=== PATIENT | female | born 1965 | race American Indian/Alaskan Native ===

== ENCOUNTER 2017-03-14 09:58 | Emergency (ER) | payer MEDICAID ==
[2017-03-14 10:26] VITALS: BP 118/78
--- NOTE | 2017-03-14 10:27 | Emergency Department Report ---
Stated Complaint: CHEST PAIN Time Seen by Provider: 03/14/17 10:23 - HPI History of Present Illness: PT c/o L sided chest pain x 1 week PT also c/o headaches, hx of cva - ROS Review of Systems: + subjective fever + cough + headache x 2 weeks - Exam Physical Exam: PT is alert and appropriate no focal weakness noted gcs 15 steady gait MSE screening note: Focused history and physical exam performed. Due to findings the following was ordered: ct, ekg, labs, xr ED Disposition for MSE Condition: Stable
[2017-03-14 11:14] LABS: INR 0.93 (0.87-1.13); Partial Thromboplastin Time 26.9 Sec. (24.2-36.6)
--- NOTE | 2017-03-14 11:15 | Cat Scan Report ---
Cranial CT without contrast. History: Headache/light headedness. Findings: There is no evidence of acute hemorrhage or infarct. The posterior fossa is normal. The ventricles are normal in size and contour. There are chronic infarcts in the left hemisphere involving the external capsule region and the left paraventricular region possibly involving the internal capsule as well. This infarct measures approximately 1.2 cm in maximum dimension. There are no masses or extra-axial collections. The calvarium is intact. Impression: No acute findings. Chronic left hemispheric infarcts are noted.
[2017-03-14 11:20] LABS: Alanine Aminotransferase 11 units/L (7-56); Albumin/Globulin Ratio 1.3 %; Alkaline Phosphatase 40 units/L (35-129); Anion Gap 18 mmol/L; BUN/Creatinine Ratio 18; Blood Urea Nitrogen 16 mg/dL (7-17); Calcium 8.8 mg/dL (8.4-10.2); Carbon Dioxide 25 mmol/L (22-30); Glucose 91 mg/dL (65-100); Lipase 23 units/L (13-60); Potassium 4.2 mmol/L (3.6-5.0); Sodium 141 mmol/L (137-145)
[2017-03-14 12:16] LABS: Basophils % (Auto) 0.6 % (0.0-1.8); Hematocrit 37.6 % (30.3-42.9); Mean Corpuscular HGB Conc 32 % (30-34); Mean Corpuscular Hemoglobin 28 pg (28-32); Mean Corpuscular Volume 88 fl (79-97); Platelet Count 238 K/mm3 (140-440); Red Blood Count 4.29 M/mm3 (3.65-5.03); Red Cell Distribution Width 15.1 % (13.2-15.2); White Blood Count 5.3 K/mm3 (4.5-11.0)
--- NOTE | 2017-03-14 13:07 | XRay Report ---
Single view chest: History: Chest pain. Findings: Normal cardiomediastinal silhouette. Trachea is midline. No consolidation, pneumothorax or pleural effusion. Impression: No acute cardiopulmonary findings.
== END 2017-03-14 20:10 | disposition left against medical advice (07) ==
LOC: ED 09:58
DX: R07.9 Chest pain, unspecified (principal); R50.9 Fever, unspecified; R05 Cough; Z53.21 Procedure and treatment not carried out due to patient leaving prior to being seen by health care provider
CPT/HCPCS: 36415; 70450; 71020; 80053; 83690; 83880; 84484; 84703; 85025; 85610; 85730; 93005; 93010

== ENCOUNTER 2018-09-15 04:03 | Emergency (ER) | payer MEDICAID, OTHER ==
[2018-09-15 05:12] LABS: Basophils % (Auto) 0.6 % (0.0-1.8); Eosinophils # (Auto) 0.1 K/mm3 (0.0-0.4); Hematocrit 43.1 % (30.3-42.9); Hemoglobin 14.3 gm/dl (10.1-14.3); Lymphocytes # (Auto) 2.9 K/mm3 (1.2-5.4); Lymphocytes % (Auto) 39.7 % (13.4-35.0); Mean Corpuscular HGB Conc 33 % (30-34); Mean Corpuscular Volume 90 fl (79-97); Monocytes # (Auto) 0.7 K/mm3 (0.0-0.8); Monocytes % (Auto) 8.8 % (0.0-7.3); Platelet Count 250 K/mm3 (140-440); Red Blood Count 4.78 M/mm3 (3.65-5.03); Red Cell Distribution Width 14.5 % (13.2-15.2)
[2018-09-15 05:34] LABS: Calcium 9.6 mg/dL (8.4-10.2)
[2018-09-15] MEDS ORDERED: NACL 0.9% 1000 ML 1,000 ML IV ONE (08:11)
--- NOTE | 2018-09-15 08:51 | Emergency Department Report ---
ED Dizziness HPI - General Chief Complaint: Dizziness Stated Complaint: LIGHTHEADED Time Seen by Provider: 09/15/18 08:09 Source: patient Mode of arrival: Ambulatory Limitations: No Limitations - History of Present Illness Initial Comments: 53-year-old female past medical history of CVA without residual deficits, HIV with undetectable viral load, and hypertension presents to Hospital complaints of lightheadedness and near syncopal episode this a.m. Episode started about 2:30 AM after getting out of a hot shower. Patient felt lightheaded, had tingl ing to the left side of her face and bilateral extremities. Minimal shortness of breath reported without chest pain. Patient have intermittent cramps to her legs. Patient states she had a recent trip to [place]. - Related Data Allergies Allergy/AdvReac Type Severity Reaction Status Date / Time No Known Allergies Allergy Verified 03/14/17 10:28 ED Review of Systems ROS: Stated complaint: LIGHTHEADED Other details as noted in HPI Comment: All other systems reviewed and negative ED Past Medical Hx - Past Medical History Previous Medical History?: Yes Hx Hypertension: Yes Hx CVA: Yes (2014) Hx HIV: Yes - Surgical History Past Surgical History?: Yes Additional Surgical History: - Social History Smoking Status: Never Smoker ED Physical Exam - General Limitations: No Limitations - Other Other exam information: General: No limitations, patient is alert in no acute distress Head exam: Atraumatic, normocephalic Eyes exam: Normal appearance, pupils equal reactive to light, extraocular movements intact ENT: Moist mucous membrane Neck exam: Normal inspection, full range of motion, no meningismus nontender Respiratory exam: Clear to auscultation bilateral, no wheezes, rales, crackles Cardiovascular: Normal rate and rhythm, normal heart sounds Abdomen: Soft, nondistended, and nontender, with normal bowel sounds, no rebound, or guarding Extremity: Full range of motion normal inspection no deformity, no calf tende rness or edema Back: Normal Inspection, full range of motion, no tenderness Neurologic: Alert, oriented x3, cranial nerves intact, no motor or sensory deficit Psychiatric: normal affect, normal mood Skin: Warm, dry, intact ED Course Vital Signs 09/15/18 09/15/18 09/15/18 04:04 07:59 08:00 Temperature 98.0 F Pulse Rate 92 H 72 Respiratory 18 15 18 Rate Blood Pressure 119/82 Blood Pressure 117/79 [Left] O2 Sat by Pulse 99 100 99 Oximetry ED Medical Decision Making - Lab Data Result diagrams: 09/15/18 04:17 09/15/18 04:17 Lab Results 09/15/18 09/15/18 09/15/18 Range/Units 04:17 04:17 08:58 WBC 7.4 (4.5-11.0) K/mm3 RBC 4.78 (3.65-5.03) M/mm3 Hgb 14.3 (10.1-14.3) gm/dl Hct 43.1 H (30.3-42.9) % MCV 90 (79-97) fl MCH 30 (28-32) pg MCHC 33 (30-34) % RDW 14.5 (13.2-15.2) % Plt Count 250 (140-440) K/mm3 Lymph % (Auto) 39.7 H (13.4-35.0) % [place] % (Auto) 8.8 H (0.0-7.3) % Eos % (Auto) 1.0 (0.0-4.3) % Baso % (Auto) 0.6 (0.0-1.8) % Lymph # 2.9 (1.2-5.4) K/mm3 [place] # 0.7 (0.0-0.8) K/mm3 Eos # 0.1 (0.0-0.4) K/mm3 Baso # 0.0 (0.0-0.1) K/mm3 Seg Neutrophils % 49.9 (40.0-70.0) % Seg Neutrophils # 3.7 (1.8-7.7) K/mm3 D-Dimer 171.29 (0-234) ng/mlDDU Sodium 139 (137-145) mmol/L Potassium 4.2 (3.6-5.0) mmol/L Chloride 98.8 (98-107) mmol/L Carbon Dioxide 23 (22-30) mmol/L Anion Gap 21 mmol/L BUN 23 H (7-17) mg/dL Creatinine 1.9 H (0.7-1.2) mg/dL Estimated GFR 33 ml/min BUN/Creatinine Ratio 12 % Glucose 93 (65-100) mg/dL Calcium 9.6 (8.4-10.2) mg/dL - EKG Data -: EKG Interpreted by Me EKG shows normal: sinus rhythm, axis (qrs 25), QRS complexes (qrsd 87), ST-T waves (no stemi) Rate: normal (69) - EKG Data When compared to previous EKG there are: no significant change - Medical Decision Making + Orthostatic and prerenal BUN and creatinine ratio suggesting dehydration Patient feeling better after 1 L of normal saline D-dimer negative with low pretest probability for PE. No signs of hypoxia or tachycardia Plan to DC with renal and PMD follow-up for mild renal insufficiency - Differential Diagnosis CHF, GA, PE, pneumonia, renal failure, hypertensive emergency Critical Care Time: No Critical care attestation.: If time is entered above; I have spent that time in minutes in the direct care of this critically ill patient, excluding procedure time. ED Disposition Clinical Impression: Light-headedness, Dehydration, Mild renal insufficiency, HIV disease Disposition: DC-01 TO HOME OR SELFCARE Is pt being admited?: No Does the pt Need Aspirin: No Condition: Stable Instructions: Lightheadedness (ED), Dehydration (ED), Human Immunodeficiency Virus Infection (ED), Impaired Kidney Function (ED) Additional Instructions: Follow up with your doctor or the clinic/doctor provided. Return if symptoms worsen as indicated by your discharge instructions Referrals: [facility] [Other] - 3-5 Days MANDIE OLIVEIRA MD [Staff Physician] - 3-5 Days (Kidney specialist) your, primary care doctor [Other] - 3-5 Days Time of Disposition: 10:44 - Assessment Assessment Interval: Baseline - Level of Consciousness 1a. Level of Consciousness: alert/keenly responsive - LOC Questions 1b. LOC Questions: answers both correctly - LOC Command 1c. LOC Commands: performs tasks correctly - Best Gaze 2. Best Gaze: normal - Visual 3. Visual: no visual loss - Facial Palsy 4. Facial Palsy: normal symmetrical movement - Motor Arm 5a. Motor Arm Left: no drift 5b. Motor Arm Right: no drift - Motor Leg 6a. Motor Leg Left: no drift 6b. Motor Leg Right: no drift - Limb Ataxia 7. Limb Ataxia: absent - Sensory 8. Sensory: normal - Best Language 9. Best Language: no aphasia - Dysarthria 10. Dysarthria: normal - Extinction and Inattention 11. Extinction/Inattention: no abnormality - Scoring Total Score: 0 Stroke Severity: No Stroke Symptoms
[2018-09-15 10:50] VITALS: BP 118/79
== END 2018-09-15 11:19 | disposition home or self-care (01) ==
LOC: ED 04:03
DX: E86.0 Dehydration (principal); N28.9 Disorder of kidney and ureter, unspecified; I10 Essential (primary) hypertension; Z86.73 Personal history of transient ischemic attack (TIA), and cerebral infarction without residual deficits
CPT/HCPCS: 36415; 80048; 85025; 85379; 93005; 93010; 96360; 99284; J7030